=== PATIENT | female | born 1960 | race Caucasian/White ===

== ENCOUNTER 2019-01-29 09:17 | Outpatient (RCR) | payer MEDICAID, SELFPAY ==
[2019-01-29 09:45] VITALS: BP 106/68; PULSE 65; RESP 18; TEMP 36.6; BMI 35.9
--- NOTE | 2019-01-29 10:57 | PCM.WC.HP ---
(1) Leg pain, bilateral Status: Chronic Current Visit: Yes Code(s): M79.604 - Pain in right leg; M79.605 - Pain in left leg (2) Leg swelling Status: Chronic Current Visit: Yes Code(s): M79.89 - Other specified soft tissue disorders (3) Edema of both legs Status: Chronic Current Visit: Yes Code(s): R60.0 - Localized edema (4) Hypertension Status: Chronic Current Visit: No Code(s): I10 - Essential (primary) hypertension (5) Hyperlipidemia Status: Chronic Current Visit: No Code(s): E78.5 - Hyperlipidemia, unspecified (6) CAD (coronary artery disease) Status: Chronic Current Visit: No Qualifiers: Coronary Disease-Associated Artery/Lesion type: [place] artery [place] vs. transplanted heart: hamilton heart Code(s): I25.10 - Atherosclerotic heart disease of [place] coronary artery without angina pectoris (7) Tobacco abuse Status: Chronic Current Visit: Yes Code(s): Z72.0 - Tobacco use (8) Tobacco abuse counseling Status: Chronic Current Visit: Yes Code(s): Z71.6 - Tobacco abuse counseling (9) Restless leg Status: Chronic Current Visit: Yes Code(s): G25.81 - Restless legs syndrome (10) Solis's esophagus Status: Chronic Current Visit: No Code(s): K22.70 - Solis's esophagus without dysplasia (11) Diverticular disease of colon Status: Acute Current Visit: No Code(s): K57.30 - Diverticulosis of large intestine without perforation or abscess without bleeding (12) Obesity (BMI 30-39.9) Status: Acute Current Visit: No Code(s): E66.9 - Obesity, unspecified History of Present Illness Date of Service: 01/29/19 Chief Complaint: My feet are constantly telling me. It feels like I have needles poking me. History of Wound: This is a 58-year-old female who presents complaining of pain and discomfort in her lower extremities and feet, like needles poking me. She describes her pain and discomfort as constant. The pain is not provoked by activity, time of day, or other external factors. Her pain is associated with restlessness, particularly at night. She experiences swelling in her lower extremities, though does not relate any specific influences or factors which contribute to the swelling. She claims to be active. She sleeps on a flat mattress at night. She has no history of thrombophlebitis. She presents with no wounds or skin changes in her lower extremities. She is gainfully employed, as a restaurant crew person at [employer] Past Medical History Past Medical History: Chronic Problems Leg pain, bilateral (Chronic) Leg swelling (Chronic) Edema of both legs (Chronic) Hypertension (Chronic) Hyperlipidemia (Chronic) CAD (coronary artery disease) (Chronic) Tobacco abuse (Chronic) Tobacco abuse counseling (Chronic) Restless leg (Chronic) Solis's esophagus (Chronic) Past Medical History: The patient has a history of hypertension, hyperlipidemia, mild coronary artery disease, diverticulosis of the colon, hiatal hernia, and Solis's esophagitis. Surgical History: appendectomy, - - Patient is a G2, P2 Ab0 - Family History Paternal - - Patient's father at the age of 47 from a myocardial infarction. Patient's mother at age 56 with a pulmonary embolism. Social History: Patient is employed as a restaurant crew person at [employer] She smokes nearly 2 packs of cigarettes per day. Consumes [employer] beverages occasionally. She is not . Smoking Status: Current some day smoker Tobacco Use: Cigarettes Alcohol: Occasional Drugs: None Review of Systems Constitutional: Denies: Chills, Fever, Weight Change Eyes: Denies: Pain, Vision Change HEENT: Denies: Difficulty Hearing, Difficulty Swallowing, Sinus Congestion Cardiovascular: Denies: Chest Pain, Palpitations Respiratory: Denies: Cough, Shortness of Breath Gastrointestinal: Denies: Diarrhea, Nausea, Vomiting Genitourinary: Denies: Dysuria, Hematuria Endocrine: Denies: Heat/ Cold Intolerance, Polydipsia, Polyuria Hematologic/ Lymphatic: Denies: Easy Bruising, Easy Bleeding - Physical Exam Vital Signs Temp Pulse Resp BP 97.8 F 65 18 106/68 01/29/19 09:45 01/29/19 09:45 01/29/19 09:45 01/29/19 09:45 General: Alert, Oriented x3, Cooperative, No apparent distress, Well developed, Well nourished HEENT: Atraumatic, PERRLA, EOMI, Normocephalic Oral: Moist Mucosa Neck: Supple, No JVD, Negative Carotid Bruits, Negative Hepatojugular Reflux, No Nodes, No Nuchal Rigidity, Trachea Midline Lungs: Clear to auscultation, Normal air movement, No rhonchi, No wheeze, No rales, Diminished Cardiovascular: Regular rate, Regular Rhythm, Normal S1, Normal S2, No murmurs Abdomen: Soft, Non Tender, Non-Distended Extremities: No clubbing, No cyanosis, No edema, No Calf Tenderness, - - Lower extremities appear warm and well-perfused. There is no swelling or edema noted. There are no significant skin changes. There are no open wounds or ulcerations. Scattered small telangiectasias are noted, particularly at knee level bilaterally. Skin: No rashes, No breakdown Wound Measurements and Assessment WC - Nurse 1 - General Ulcer Measurement Start: 01/29/19 09:45 Freq: Status: Active Protocol: Activity Type Activity Date Activity User E-Sign Co-Sign Detail Recorded Client Recorded Date Recorded By Document 01/29/19 09:45 AN [id number] 01/29/19 10:17 AN 01/29/19 09:45 Wound Center Nurse 1 [Edema Assessment] -Right Calf (cm) 36.5 -Right Ankle (cm) 22.8 -Left Calf (cm) 36.0 -Left Ankle (cm) 22.8 Musculoskeletal: No Muscle Wasting Neurological: Cranial nerves II-XII grossly intact, Neuro grossly intact Psych/Mental Status: Normal Affect, Appropriate, Alert and oriented to time, place, person, mood and affect Debridement Note No debridement was completed today - There are no open wounds or ulcerations Assessment/Plan Active Problems Leg pain, bilateral (Chronic) Leg swelling (Chronic) Edema of both legs (Chronic) Tobacco abuse (Chronic) Tobacco abuse counseling (Chronic) Restless leg (Chronic) Assessment: This is a 58-year-old female who presents with pain and discomfort in her lower extremities, for reasons yet to be elucidated. This is also associated with swelling and restlessness. The patient's pain, swelling, and restlessness do not appear to be associated with any exacerbating stimuli. Physical examination does not reveal any significant abnormalities to account for her presenting symptoms. At this juncture, it appears quite possible that her presenting symptoms are related to metabolic factors, and that her symptoms may be neuropathic in origin. Plan: We are to obtain routine diagnostic laboratory studies, including a CBC, comprehensive metabolic profile, serum prealbumin, and thyroid studies. We also will obtain vascular studies of the lower extremities, namely a venous and noninvasive lower extremity arterial study with exercise. Patient will return thereafter for a discussion of the results. Given that the initial impression suggests neuropathic symptoms, possibly related to metabolic factors, the patient may ultimately benefit from referral to practitioners in another specialty. Patient is a smoker. She has been counseled as to the adverse consequences of smoking, and advised to cease her habit. Influenza vaccine was not administered today. Patient weighs 184 pounds. She stands 5 feet 0 inches tall. Her BMI is 35.9, which places her in a class II obesity category. Weight loss has been recommended.
[2019-01-29 11:46] LABS: Hemoglobin 16.6 g/dl (12.0-15.0); Mean Corp Hgb Conc 33.2 g/gl (32-36); Mean Corpuscular Hgb 29.4 pg (27.0-32.0); Mean Corpuscular Volume 88.7 fL (81-99); Mean Platelet Vol. 9.9 fl (6.2-12.0); Platelet Count 328 K/mm3 (150-450); RBC Distribution Width CV 16.2 % (11.6-14.6); RBC Distribution Width SD 52.9 fl (35.1-43.9); Red Blood Count 5.64 M/mm3 (4.2-5.4); White Blood Count 16.1 K/mm3 (4.4-11.0)
[2019-01-29 11:52] LABS: Scan Indicated on CBC? Y/N NO
[2019-01-29 12:54] LABS: ALB/GLOB Ratio 0.9 RATIO (0.9-2.4); AST(SGOT) 21 U/L (15-37); Alanine Aminotransfer ALT/SGPT 18 U/L (13-56); Albumin, Serum 3.6 g/dL (3.2-5.0); Alkaline Phosphatase 83 U/L (45-117); Anion Gap 5 (5-15); BUN 24 mg/dL (7-18); BUN/Creat Ratio 33.7 RATIO (10-20); Calcium,Total 9.4 mg/dL (8.5-10.1); Chloride 103 mmol/L (98-107); Creatinine, Serum 0.71 mg/dL (0.55-1.02); EST Glomerular Filtration Rate 90 mL/min (>60); Est Glom Filt Rate - Afr Amer 109 mL/min (>60); Estimated Creatinine Clearance 62.79 ml/min; Free T3 2.7 pg/mL (2.18-3.98); Globulin 4.2 g/dL (2.2-4.2); Glucose 89 mg/dL (74-106); Potassium 4.6 mmol/L (3.5-5.1); Prealbumin 40.5 mg/dL (20.0-40.0); Protein, Total 7.8 g/dL (6.4-8.2); Sodium Level 139 mmol/L (136-145); T4 Free Direct 0.86 ng/dL (0.76-1.46); T4 Total, Thyroxin 9.3 ug/dL (4.8-13.9); Thyroid Stim Hormone (TSH) 2.87 uIU/mL (0.358-3.74)
== END 2019-02-10 23:59 ==
LOC: WC 09:17
PROVIDERS: Family Provider Nurse Practitioner Family; PCP Nurse Practitioner Family; Visit Provider Surgery
DX: M79.89 Other specified soft tissue disorders (principal); G25.81 Restless legs syndrome; M79.605 Pain in left leg; M79.604 Pain in right leg; I10 Essential (primary) hypertension; R60.0 Localized edema; E78.5 Hyperlipidemia, unspecified; I25.10 Atherosclerotic heart disease of native coronary artery without angina pectoris; K22.70 Barrett's esophagus without dysplasia; E66.9 Obesity, unspecified; Z68.35 Body mass index [BMI] 35.0-35.9, adult; Z71.3 Dietary counseling and surveillance; F17.210 Nicotine dependence, cigarettes, uncomplicated
CPT/HCPCS: 80053; 84134; 84436; 84439; 84443; 84481; 85027; 99204; G0463